=== PATIENT | female | born 1975 | race Caucasian/White ===

== ENCOUNTER 2020-11-09 14:01 | Outpatient (REF) | payer SELFPAY | END 2020-11-09 14:02 | disposition home or self-care (01) | LOC: HO.LAB 14:01 | PROVIDERS: Visit Provider Internal Medicine | DX: Z20.828 Contact with and (suspected) exposure to other viral communicable diseases (principal) | CPT/HCPCS: C9803; U0003 ==

== ENCOUNTER 2023-01-24 07:06 | Emergency (ER) | payer MEDICAID, SELFPAY ==
--- NOTE | ~2023-01-24 | XR_ITS ---
EXAMINATION: XR CHEST CLINICAL INFORMATION: Cough. COMPARISON: None TECHNIQUE: 2 views of the chest were obtained. FINDINGS: No significant abnormality is noted involving the heart, lungs, mediastinum, bony thorax or soft tissues. XR/XR chest 2V IMPRESSION: No acute cardiopulmonary process.
--- NOTE | 2023-01-24 07:13 | ECG_ITS ---
Test Reason : CP Blood Pressure : / mmHG Vent. Rate : 098 BPM Atrial Rate : 098 BPM P-R Int : 126 ms QRS Dur : 070 ms QT Int : 356 ms P-R-T Axes : 049 038 029 degrees QTc Int : 454 ms Normal sinus rhythm with sinus arrhythmia Cannot rule out Anterior infarct , age undetermined Abnormal ECG No previous ECGs available Referred By: Generic ED Physician Electronically Signed By:KRYSTAL ROBLES MD
[2023-01-24 07:23] VITALS: BP 188/122; PULSE 116; RESP 18; TEMP 36.6; O2SAT 98; BMI 31.0
[2023-01-24 08:21] LABS: COVID-19 Test Negative (Negative); IDNOW Serial# 16C4AD1C
--- NOTE | 2023-01-24 12:30 | ED.GENADULT ---
HPI - General Adult General Chief complaint: Upper Respiratory Symptoms Stated complaint: chest pains, sore throat Time Seen by Provider: 01/24/23 12:29 Source: patient and banquet food server Mode of arrival: ambulatory Limitations: no limitations History of Present Illness HPI narrative: 47-year-old female presents to the ER for evaluation of 2 weeks of feeling unwell. She reports a dry cough associated with chest wall pain for the last 2 weeks. Her symptoms have been waxing and waning, overall slightly improved but not resolved. She reports pain in the back of her head and upper back when she coughs as well. She has been taking [id number] DayQuil and NyQuil for his symptoms with minimal relief. She denies any known sick contacts. She denies any chest pain or shortness of breath at rest. MD complaint: Cough Onset (ago): week(s) (2) Location: chest and back Radiation: non-radiation Severity: moderate Quality: aching Pain Consistency: intermittent Relieving factors: rest Exacerbating factors: other (coughing) Associated symptoms: cough, headaches, loss of appetite and malaise Treatments prior to arrival: none Related Data Previous Rx's Medication Instructions Recorded benzonatate 100 mg capsule 100 mg PO TID PRN cough #30 caps 01/24/23 hydrocodone-homatropine 5 mg-1.5 5 ml PO Q4-6H PRN cough #60 mL 01/24/23 mg/5 mL (5 mL) oral syrup (Hycodan) Allergies Allergy/AdvReac Type Severity Reaction Status Date / Time No Known Allergies Allergy Unverified 08/11/20 19:09 [No Known Allergies*] Review of Systems Review of Systems: Yes all other systems are reviewed and are negative [facility] Social History Social History Advance Directives: No Physical Exam ED Vital Signs: Vital Signs - 24 hr 01/24/23 07:23 01/24/23 12:35 01/24/23 13:39 Temperature 98 F 98.4 F 98.1 F Pulse Rate 116 H 98 96 Respiratory Rate 18 18 16 Blood Pressure 188/122 H 190/106 H 178/107 H Pulse Oximetry 98 100 100 Oxygen Delivery Method Room Air Room Air Room Air BMI result Body Mass Index 31.0 Appearance: Alert. Oriented X3. No acute distress. Eyes: Pupils equal, round and reactive to light. ENT: Pharynx normal. Neck: Normal inspection. Neck supple. CVS: Normal heart rate and rhythm. Pulses normal. Mild anterior chest wall tenderness. Respiratory: No respiratory distress. Breath sounds normal. Abdomen: Soft and nontender. +BS x4 Skin: Skin warm and dry. Normal skin color. Normal skin turgor. No rashes. Extremities: No lower extremity edema. No calf tenderness Neuro: Oriented X 3. No motor deficit. No sensory deficit. Course Course Course Narrative: 47-year-old female presents to the ER for evaluation of cough for last 2 weeks associated with chest wall pain and headaches. She also has body aches. On arrival to the ER she is hypertensive 188/122 with heart rate 116. She is afebrile and breathing comfortably. She reports history of hypertension but is not on any medications. She just got her insurance and has no local PCP at this time. She denies any current headache or chest pain. Chest x-ray and EKG were performed along with COVID swab. COVID is negative. She has been taking [id number] DayQuil which is known to have phenylephrine. This can transiently increase her blood pressure. She does not have a baseline blood pressure that she is aware of, has not seen a doctor in many years. No evidence of hypertensive urgency or emergency at this time. Will treat with amlodipine and reassess. Reevaluation(s) Reevaluation #1: Patient's blood pressure improved 178/107. She is saturating 100% on room air. Her chest x-ray showed no pneumonia. EKG without any ischemic changes. customer data technician was used to discuss importance of close outpatient follow-up, monitoring blood pressure at home, trending for her future doctor. She is also given strict return precautions and signs and symptoms of hypertensive urgency/emergency. Comfortable discharge home with supportive care, antitussives. Patient agrees with plan. Medications Administered Discontinued Medications Generic Name Dose Route Start Last Admin Trade Name Freq PRN Reason Stop Dose Admin Amlodipine Besylate 10 mg 01/24/23 12:34 01/24/23 13:13 Amlodipine Besylate 10 Mg Tablet PO 01/24/23 12:35 10 mg ONCE ONE Administration Protocol Medical Decision Making Differential Diagnosis Differential Diagnoses: The differential diagnosis associated with the presentation includes Viral syndrome, COVID, flu, RSV, pneumonia, bronchitis, less likely ACS or PE, hypertensive urgency, hypertensive emergency, asymptomatic essential hypertension, adverse medication reaction Admission/Observation Consideration of admission/observation: Escalation of care including admission/observation considered Accelerated hypertension improved with oral medications, does not require admission. Lab Data MDM Lab Attestation statement: I reviewed the patient's lab results. Labs: Lab Results 01/24/23 Range/Units 08:00 COVID-19 (ANNAMARIE) Negative (Negative) COVID-19 Clin Com See Note Independent Interpretation I performed an independent interpretation of an: EKG and Plain X-Ray Interpretation: Chest x-ray reviewed, no focal infiltrate or effusion. EKG with normal sinus rhythm, sinus arrhythmia, ventricular rate 90 beats per minute, normal WA interval, normal QTC, some artifact is present in the lateral leads, no ST segment elevations or depressions. Radiology Impression Discussion of test interpretation with radiology: I have reviewed the radiologist's reading. Radiologist Impression: FINDINGS: No significant abnormality is noted involving the heart, lungs, mediastinum, bony thorax or soft tissues. XR/XR chest 2V IMPRESSION: No acute cardiopulmonary process. External Record Review External record reviewed: Office record, Outpatient record and Prior outpatient labs Tests considered The following testing was considered but not selected: Lab workup considered, not indicated given her chest pain is reproducible, doubt ACS or PE. No current chest pain. Prescription Management I considered prescription management with: Antibiotic Chronic Conditions Patient?s care impacted by: Hypertension Critical Care Time Critical Care Time Critical Care Time: No Discharge Plan Discharge Clinical Impression: Viral infection, Hypertension Patient Disposition: Home, Self-Care Instructions: How to Take a Blood Pressure (ED), Viral Syndrome (ED) Additional Instructions: Your EKG was normal and you tested negative for COVID. Your symptoms are most likely due to another viral illness Your blood pressure was significantly elevated today. This could be for many reasons - over the counter medications for colds can temporarily increase blood pressure Recommend STOPPING the DayQuil and starting the prescribed medications for cough Take Motrin and/or Tylenol as needed for body ache and headaches Recommend purchasing a blood pressure cuff to monitor your BP at home. Keep a record for your doctor Follow up with a primary care doctor as soon as possible. If you develop new or worsening symptoms call 911 or come back to the ER for further evaluation. Cee electrocardiograma fue normal y trish negativo para COVID. Lo m?s probable es que carlos s?ntomas se deban a otra enfermedad viral. Cee presi?n arterial se elev? significativamente hoy. [place] podr?a deberse a muchas razones: los medicamentos de venta irma para los resfriados pueden aumentar temporalmente la presi?n arterial. Recomiende DETENER el DayQuil y comenzar a berta los medicamentos recetados para la tos [place] Motrin y/o Tylenol seg?n sea necesario para el dolor de cuerpo y de elizabeth Recomiende comprar un manguito de presi?n arterial para controlar cee presi?n arterial en casa. Mantenga un registro para cee m?dico Seguimiento con un m?dico de atenci?n primaria haji pronto mary sea posible. Si desarrolla s?ntomas nuevos o que empeoran, llame al 911 o regrese a la marlon de emergencias para kalani evaluaci?n adicional. Prescriptions: New benzonatate 100 mg capsule 100 mg PO TID PRN (Reason: cough) Qty: 30 0RF hydrocodone-homatropine [Hycodan] 5-1.5 mg/5 mL (5 mL) syrup 5 ml PO Q4-6H PRN (Reason: cough) Qty: 60 0RF Rx Instructions: Partial Fill upon patient request. Referrals: [facility] [Provider Group] (needs new PCP) Stand Alone Forms: Work/School Release Interventions: ED Discharge Assessment Last Done: 01/24/23 14:27 Discharge Date/Time: 01/24/23 14:28 Print Language: Fijian
[2023-01-24 12:35] VITALS: BP 190/106; PULSE 98; RESP 18; TEMP 36.9; O2SAT 100
[2023-01-24] MEDS: amLODIPine Besylate 10 MG TABLET PO (13:13)
[2023-01-24 13:39] VITALS: BP 178/107; PULSE 96; RESP 16; TEMP 36.7; O2SAT 100
== END 2023-01-24 14:28 | disposition home or self-care (01) ==
PROVIDERS: Emergency Provider Student in an Organized Health Care Education/Training Program
DX: B34.9 Viral infection, unspecified (principal); R07.89 Other chest pain; R05.9 Cough, unspecified; R51.9 Headache, unspecified; I10 Essential (primary) hypertension; Z20.822 Contact with and (suspected) exposure to COVID-19; Z20.828 Contact with and (suspected) exposure to other viral communicable diseases; Z79.899 Other long term (current) drug therapy
CPT/HCPCS: 71046; 87635; 93005; 99283; 99284